=== PATIENT | female | born 2000 ===

== ENCOUNTER 2024-04-07 08:09 | Emergency (ER) | payer MEDICAID, SELFPAY ==
[2024-04-07 08:35] VITALS: BP 119/69; PULSE 78; RESP 14; TEMP 36.8; O2SAT 98
[2024-04-07 09:00] VITALS: BP 114/70; BP 129/70; PULSE 85; PULSE 98; RESP 15; TEMP 36.7; O2SAT 95; O2SAT 99; BMI 27.1
--- NOTE | 2024-04-07 09:27 | ED_ITS ---
HPI - General Adult General Chief complaint: Dyspnea Stated complaint: ASTHMA ATTACK,DUO GIVEN Time Seen by Provider: 04/07/24 09:26 Source: patient and EMS Mode of arrival: EMS Limitations: no limitations History of Present Illness ED Provider: Barbie Paige PA-C HPI narrative: Patient is a 23 year old assigned female at with a history of asthma presenting to the emergency department today with an asthma attack. Patient states that she woke up with increased wheezing and shortness of breath. Patient states that she is prescribed an inhaler but can't currently locate it. Patient states that EMS gave her a duoneb and she has felt much better since that. Patient denies any dizziness, lightheadedness, abdominal pain, nausea, vomiting, fever, chills, blurry vision, double vision, loss of vision, chest pain, back pain, night sweats, pain with urination, increased urinary frequency, increased urinary urgency, blood in her urine or stool, syncope or a near syncopal episode, recent trauma or falls, bowel incontinence, bladder incontinence, or any other complaints at this time. Relieving factors: none Exacerbating factors: none Associated symptoms: shortness of breath Related Data Previous Rx's ?Medication ?Instructions ?Recorded albuterol sulfate 90 mcg/actuation 1 inh inhalation QID #8.5 grams 04/07/24 aerosol inhaler prednisone 20 mg tablet 20 mg PO DAILY 7 days #7 tabs 04/07/24 Allergies Allergy/AdvReac Type Severity Reaction Status Date / Time No Known Allergies Allergy Verified 04/07/24 09:05 Review of Systems Constitutional: Constitutional: Reports no additional constitutional complaints, Denies chills, Denies fever(s) and Denies night sweats Eyes: Eyes: Reports no additional eye complaints, Denies blurry vision, Denies change in vision, Denies diplopia, Denies eye discharge, Denies loss of vision and Denies eye pain ENT: Denies dizziness Cardiovascular: Cardiovascular: Reports no additional cardiovascular complaints, Denies chest pain, Denies lightheadedness, Denies Loss of Consciousness and Reports dyspnea Respiratory: Respiratory: Reports no additional respiratory complaints, Re ports dyspnea and Reports wheezing Gastrointestinal: Gastrointestinal: Reports no additional gastrointestinal complaints, Denies abdominal pain, Denies melena, Denies hematochezia, Denies change in bowel habits and Denies change in stool character Genitourinary: Genitourinary: Denies hematuria, Denies urinary frequency, Denies dysuria, Denies urinary incontinence, Denies urinary hesitancy and Denies urinary urgency Musculoskeletal: Musculoskeletal: Reports no additional musculoskeletal complaints, Denies numbness and Denies tingling Neurologic: Denies dizziness, Denies loss of vision, Denies numbness and Denies tingling Psychiatric: Psychiatric: Reports no additional psychiatric complaints Endocrine: Endocrine: Reports no additional endocrine complaints Hematologic/Lymphatic: Hematologic/Lymphatic: Reports no additional hematologic/lymphatic complaints Allergic/Immunologic: Allergic/Immunologic: Reports no additional allergic/immunologic complaints and Reports wheezing PMFSH Past Medical History Attestation statement: The following information was validated with the patient. Source: old records reviewed and nursing notes reviewed Social History Social History Smoked in Last 30 Days: No Use of substances other than those prescribed or required for medical reasons: Yes Substance Use Type: Marijuana Substance Use Frequency: Socially Advance Directives: No Advance Directives Information Provided: No Do you have a plan to hurt others: No Plan Physical Exam ED Vital Signs: Vital Signs - 24 hr 04/07/24 08:35 04/07/24 09:00 04/07/24 09:56 Temperature 98.3 F 98.0 F Pulse Rate 78 85 57 Respiratory Rate 14 15 18 Blood Pressure 119/69 114/70 Pulse Oximetry 98 99 Oxygen Delivery Method Room Air Room Air 04/07/24 10:19 Temperature 98 F Pulse Rate 85 Respiratory Rate 15 Blood Pressure 114/70 Pulse Oximetry 98 Oxygen Delivery Method Room Air BMI result Body Mass Index 27.1 Const General: cooperative, no acute distress, alert and awake Nutritional Appearance: well nourished Orientation/consciousness: patient oriented x3 Limitations: no limitations [facility] Head: Yes normal to inspection and Yes atraumatic Ears: hearing grossly normal bilaterally and external ears normal General nose exam: Normal external nose present, no nasal discharge noted and no epistaxis Face and sinus: Yes normal facial exam, No abrasion and No laceration Mouth: Normal oral and palatal mucosa present, no drooling and no muffled voice Eyes General: appearance normal, both eyes and all related structures Periorbital: periorbital findings normal Eyelids: Yes eyelids normal Conjunctivae: conjunctivae normal Pupils: Equal, round and reactive pupils present EOM: EOMs intact bilaterally Neck Neck: Yes normal visual inspection, Yes full ROM and Yes no lymphadenopathy Chest Chest palpation & inspection: normal inspection of the chest Resp Effort & Inspection: normal respiratory effort and able to speak in complete sentences Auscultation: wheezes throughout GI Inspection: Yes normal to inspection Neuro General: patient oriented x3 and moves all extremities Cranial nerves: Yes Equal, round and reactive pupils present Cognition (Neuro): normal cognition Extrem General: Yes normal to inspection, Yes full ROM and Yes capillary refill normal Psych Appearance: grossly normal Mental Status: mental status grossly normal Affect: normal affect Attitude: cooperative Thought process: Normal thought process present Thought content: Normal thought content present Insight: Good insight present (Psych) Medications Administered Discontinued Medications Generic Name Dose Route Start Last Admin Trade Name Ramez PRN Reason Stop Dose Admin Albuterol Sulfate 2.5 mg/ 0 mg 04/07/24 09:48 04/07/24 09:54 Albuterol/Ipratropium 3 ml INHALE 04/07/24 09:49 1 dose ONCE ONE Administration Methylprednisolone Sodium Succinate 60 mg 04/07/24 09:44 04/07/24 10:09 Methylprednisolone Sod Succ 125 Mg/2 Ml Vial IVPUSH 04/07/24 09:45 60 mg ONCE ONE Administration Medical Decision Making Medical Decision Making [facility] Narrative: Patient is a 23 year old assigned female at with a history of asthma presenting to the emergency department today with increased wheezing and shortness of breath. Patient's physical exam showed wheezing but was otherwise unremarkable. I explained my physical exam findings to the patient. I answered all questions asked by the patient. Patient received breathing treatments and IV solu-medrol which, upon re-evaluation, she stated it helped her symptoms. I stressed the importance of the patient taking her medication as directed (either prescribed or as the over the counter packaging recommends). I stressed the importance of the patient following up with her primary care provider. I stressed the importance of the patient returning to the emergency department immediately if her symptoms were to worsen or if she were to develop any dizziness, shortness of breath, difficulty breathing, chest pain, blurry vision, loss of vision, nausea, vomiting, abdominal pain, fever, chills, back pain, or any other complaints. Patient verbalized agreement and understanding with this treatment plan and discharge. Differential Diagnosis Differential Diagnoses: The differential diagnosis associated with the presentation includes Asthma exacerbation Asthma attack Admission/Observation Consideration of admission/observation: Escalation of care including admission/observation considered Patient would have been admitted to the hospital had her clinical presentation warranted hospital admission. Independent Historian Clinical information obtained from an independent historian. History obtained from or confirmed by: EMS (EMS provided additional history and confirmed the history provided by the patient.) Tests considered The following testing was considered but not selected: I considered obtaining a CBC, CMP, chest x-ray, and viral respiratory testing however, the patient's current clinical presentation did not warrant this. I discussed this with the patient who verbalized understanding and agreement. Discharge Plan Discharge Clinical Impression: Asthma with exacerbation Patient Disposition: Home, Self-Care Instructions: Asthma (DC) Additional Instructions: Follow up with your primary care provider. Return to the emergency department immediately if your symptoms worsen or if you develop any dizziness, shortness of breath, difficulty breathing, chest pain, blurry vision, loss of vision, nausea, vomiting, abdominal pain, fever, chills, back pain, or any other complaints. Prescriptions: New prednisone 20 mg tablet 20 mg PO DAILY 7 Days Qty: 7 0RF albuterol sulfate 90 mcg/actuation HFA aerosol inhaler 1 inh inhalation QID Qty: 8.5 0RF Referrals: [facility] Family Medicine [Provider Group] (Call to establish and follow up with a primary care provider. If you already have a primary care provider, please follow up with them.) [facility] [Provider Group] (Call to establish and follow up with a primary care provider. If you already have a primary care provider, please follow up with them.) [facility] [Provider Group] (Call to establish and follow up with a primary care provider. If you already have a primary care provider, please follow up with them.) Stand Alone Forms: Work/School Release Interventions: ED Discharge Assessment Last Done: 04/07/24 10:19 Discharge Date/Time: 04/07/24 10:20 Print Language: Ukrainian
[2024-04-07] MEDS: Albuterol Sulfate 2.5 MG, Albuterol/Iprat 2.5/0.5MG 3 ML 3 ML INHALE (09:54)
[2024-04-07 09:56] VITALS: PULSE 57; RESP 18; O2SAT 99
[2024-04-07] MEDS: methylPREDNISolone Sod Succ 125 MG/2 ML VIAL 60 MG IVPUSH (10:09)
[2024-04-07 10:19] VITALS: BP 114/70; PULSE 85; RESP 15; TEMP 36.6; O2SAT 98
== END 2024-04-07 10:20 | disposition home or self-care (01) ==
PROVIDERS: Emergency Provider Emergency Medicine
DX: J45.901 Unspecified asthma with (acute) exacerbation (principal)
CPT/HCPCS: 94640; 96374; 99284; J2919